=== PATIENT | female | born 1985 | race Two or more races ===

== ENCOUNTER 2024-08-04 12:57 | Emergency (ER) | payer BC, SELFPAY ==
[2024-08-04 12:58] VITALS: PULSE 88; RESP 18; O2SAT 98
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
[2024-08-04 13:13] VITALS: BP 117/84; PULSE 87; RESP 16; TEMP 36.7; O2SAT 98; BMI 33.6
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
== END 2024-08-04 15:12 | disposition home or self-care (01) ==
PROVIDERS: Emergency Provider Emergency Medicine; PCP Nurse Practitioner Family
DX: S13.4XXA Sprain of ligaments of cervical spine, initial encounter (principal); S09.90XA Unspecified injury of head, initial encounter; S29.9XXA Unspecified injury of thorax, initial encounter; S39.91XA Unspecified injury of abdomen, initial encounter; V43.52XA Car driver injured in collision with other type car in traffic accident, initial encounter
CPT/HCPCS: 70450; 71250; 72125; 74176; 99284